=== PATIENT | female | born 1950 | race Asian ===

== ENCOUNTER 2017-10-29 19:50 | Emergency (ER) | payer OTHER ==
[~2017-10-29] VITALS: Ht 152.4 cm; Wt 53.5 kg
[2017-10-29 20:00] VITALS: Ht 152.4 cm; Wt 53.5 kg
[2017-10-29 21:13] VITALS: BP 144/67
== END 2017-10-29 21:13 | disposition home or self-care (01) ==
LOC: ED 19:50
DX: S81.051A Open bite, right knee, initial encounter (principal); I10 Essential (primary) hypertension; E78.00 Pure hypercholesterolemia, unspecified; W54.0XXA Bitten by dog, initial encounter; Y93.89 Activity, other specified; Y92.89 Other specified places as the place of occurrence of the external cause; Y99.8 Other external cause status
CPT/HCPCS: 90715; J2001

== ENCOUNTER 2017-11-01 09:16 | Emergency (ER) | payer OTHER ==
[~2017-11-01] VITALS: Ht 152.4 cm; Wt 54.0 kg
[2017-11-01 09:19] VITALS: BP 121/56; Ht 152.4 cm; Wt 54.0 kg
== END 2017-11-01 10:40 | disposition home or self-care (01) ==
LOC: ED 09:16
DX: S81.811D Laceration without foreign body, right lower leg, subsequent encounter (principal); I10 Essential (primary) hypertension; E78.00 Pure hypercholesterolemia, unspecified; W54.0XXD Bitten by dog, subsequent encounter

== ENCOUNTER 2019-02-22 14:19 | Emergency (ER) | payer OTHER ==
[~2019-02-22] VITALS: Ht 162.6 cm; Wt 54.9 kg
[2019-02-22 14:29] VITALS: Ht 162.6 cm; Wt 54.9 kg
[2019-02-22 15:39] VITALS: BP 142/81
== END 2019-02-22 15:46 | disposition home or self-care (01) ==
LOC: ED 14:19
DX: T23.202A Burn of second degree of left hand, unspecified site, initial encounter (principal); T31.0 Burns involving less than 10% of body surface; I10 Essential (primary) hypertension; E78.00 Pure hypercholesterolemia, unspecified; X10.2XXA Contact with fats and cooking oils, initial encounter; Y93.89 Activity, other specified; Y92.89 Other specified places as the place of occurrence of the external cause; Y99.8 Other external cause status

== ENCOUNTER 2019-02-23 19:12 | Emergency (ER) | payer OTHER ==
[~2019-02-23] VITALS: Ht 162.6 cm; Wt 69.9 kg
[2019-02-23 19:20] VITALS: BP 145/55; Ht 162.6 cm; Wt 69.9 kg
== END 2019-02-23 20:09 | disposition home or self-care (01) ==
LOC: ED 19:12
DX: Z48.01 Encounter for change or removal of surgical wound dressing (principal)